=== PATIENT | female | born 1940 | race Caucasian/White ===

== ENCOUNTER 2018-08-03 06:39 | Day surgery (SDC) | payer BC, MEDICARE ==
[2018-08-03] MEDS ORDERED: Propofol 200 MG/20 ML SDV ONE (07:18)
[2018-08-03] MEDS ORDERED: Midazolam 1 MG/ML 2 ML SDV ONE (07:18)
[2018-08-03] MEDS ORDERED: fentaNYL 100 MCG/2 ML SDV ONE (07:18)
[2018-08-03] MEDS ORDERED: Sodium Chloride 0.9% 1,000 ML IV SCH (07:45)
--- NOTE | 2018-08-03 13:24 | OR ---
DATE OF PROCEDURE: 08/03/2018 SURGEON: Ellis Montero MD PROCEDURE: EGD. FINDINGS: 1. Mild inflammation at the GE junction. 2. Gastric polyp. COMPLICATION: None. SOLE SPLITTER: None. PATHOLOGY: 1. GE junction biopsies x6. 2. Gastric polyp biopsy. RISKS: Risks, benefits, alternatives, and limitations including, but not limited to infection, bleeding, and perforation were explained to the patient, who wished to proceed. PROCEDURE IN DETAIL: The patient was placed in left lateral decubitus position. The EGD scope was introduced and advanced atraumatically to the second part of the duodenum. No evidence of duodenitis or ulceration. Within the stomach itself, the patient had several small gastric polyps and one of these biopsied for sampling purposes. On retroflexion, no significant hiatal hernia. The GE junction did show some mild inflammation with a single tongue, concern for Olsen's esophagus. This was biopsied, and the other three quadrants were also biopsied using cold biopsy forceps. The air was removed from the stomach. The esophagus was inspected without abnormality. The patient tolerated the procedure well. Ellis Montero MD /[id number]
== END 2018-08-03 10:05 | disposition home or self-care (01) ==
LOC: JP.SDS 06:39
PROVIDERS: ATTEND Surgery
DX: K21.0 Gastro-esophageal reflux disease with esophagitis (principal); K31.7 Polyp of stomach and duodenum; K22.70 Barrett's esophagus without dysplasia; Z88.0 Allergy status to penicillin
CPT/HCPCS: 43239; J2250; J2704; J3010; J7030

== ENCOUNTER 2019-10-09 10:11 | Emergency (ER) | payer MEDICARE ==
--- NOTE | 2019-10-09 10:29 | EDM.PDOC ---
ED HPI GENERAL MEDICAL PROBLEM - General Chief Complaint: Neuro Symptoms/Deficits Stated Complaint: RT SIDE FACE NUMBNESS, DOUBLE VISION Time Seen by Provider: 10/09/19 10:21 Source of Information: Reports: Patient, Significant Other History Limitations: Reports: No Limitations - History of Present Illness INITIAL COMMENTS - FREE TEXT/NARRATIVE: Patient states that she awoke at 4:00 this morning with double vision. Double vision is persisted since then. She noted that she has difficulty walking because of her vision. At 8:30 she developed numbness of her right cheek and ton brannon. This has seemingly waxed and waned since 8:30 this morning. The patient had a previous episode of double vision 2 weeks ago which resulted in an MRI that did not show any abnormality. The patient also was evaluated by an napper tender who did not find any abnormality but wanted to see the patient back in follow-up. The patient has not noticed any one-sided weakness or difficulty with speech Onset: Today Onset Date: 10/09/19 Onset Time: 04:00 Duration: Hour(s): (6.5), Waxing/Waning Location: Reports: Head, Other (Eyesight) Quality: Reports: Other (Double vision and right facial numbness) Severity: Severe Improves with: Reports: None Context: Reports: Other (On awakening this morning) Associated Symptoms: Denies: Confusion, Chest Pain, Fever/Chills, Headaches, Nausea/Vomiting, Seizure, Shortness of Breath, Weakness - Related Data Allergies Allergy/AdvReac Type Severity Reaction Status Date / Time amoxicillin Allergy Hives Verified 10/20/18 11:46 Home Meds: Home Meds Aspirin [Halfprin] 81 mg PO DAILY 02/06/18 [History] Calcium Carbonate [Calcium] 500 mg PO DAILY 02/06/18 [History] Cholecalciferol (Vitamin D3) [Vitamin D3] 1,000 units PO DAILY 02/06/18 [History] Levothyroxine 75 mcg PO .EVERY OTHER DAY 02/06/18 [History] Levothyroxine [Synthroid] 50 mcg PO .EVERY OTHER DAY 02/06/18 [History] Metoprolol Succinate [Toprol XL 50mg] 50 mg PO DAILY 02/06/18 [History] Omeprazole 20 mg PO DAILY 02/06/18 [History] Oxybutynin Chloride [Ditropan Xl] 10 mg PO BID 02/06/18 [History] atorvaSTATin [Lipitor] 20 mg PO DAILY 02/06/18 [History] metroNIDAZOLE [metroNIDAZOLE 0.75% Gel] 1 applic TOP DAILY PRN 02/06/18 [History] Sulfamethoxazole/Trimethoprim [Septra DS] 1 each PO BID 5 Days #10 tab 10/09/19 [Rx] predniSONE [Prednisone] 10 mg PO BID 5 Days #10 tab.ds.pk 10/09/19 [Rx] valACYclovir HCl [Valtrex] 500 mg PO DAILY 10 Days #10 tablet 10/09/19 [Rx] Past Medical History HEENT History: Reports: None, Impaired Vision Cardiovascular History: Reports: High Cholesterol, Hypertension Gastrointestinal History: Reports: Colon Polyp, GERD Genitourinary History: Reports: Urinary Incontinence [employer] History: Reports: Dysfunctional Uterine Bleeding, Musculoskeletal History: Reports: Fracture, Other (See Below) Other Musculoskeletal History: history of polymyalgia Endocrine/Metabolic History: Reports: Hypothyroidism Oncologic (Cancer) History: Reports: Breast Dermatologic History: Reports: None - Infectious Disease History Infectious Disease History: Reports: Chicken Pox, Measles, Mumps, Shingles - Past Surgical History Head Surgeries/Procedures: Reports: None HEENT Surgical History: Reports: Cataract Surgery Cardiovascular Surgical History: Reports: None GI Surgical History: Reports: Colonoscopy, EGD Female Surgical History: Reports: D&C, Mastectomy Endocrine Surgical History: Reports: None Musculoskeletal Surgical History: Reports: Arthroscopic Knee Oncologic Surgical History: Reports: Mastectomy Dermatological Surgical History: Reports: Skin Biopsy Social & Family History - Family History Family Medical History: Noncontributory - Tobacco Use Smoking Status *Q: Never Smoker - Caffeine Use Caffeine Use: Reports: Coffee - Recreational Drug Use Recreational Drug Use: No ED ROS GENERAL - Review of Systems Review Of Systems: See Below Constitutional: Denies: Fever, Weakness HEENT: Reports: Vision Change (Double vision) Respiratory: Reports: No Symptoms Cardiovascular: Reports: No Symptoms GI/Abdominal: Reports: No Symptoms. Denies: Nausea, Vomiting Musculoskeletal: Reports: No Symptoms Skin: Reports: No Symptoms Neurological: Reports: Dizziness, Paresthesia (Right-sided face and tongue), Difficulty Walking. Denies: Seizure, Syncope, Trouble Speaking, Weakness, Change in Speech Psychiatric: Reports: Anxiety ED EXAM, NEURO - Physical Exam Exam: See Below Exam Limited By: No Limitations General Appearance: Alert, WD/WN, No Apparent Distress, Obese Ears: Normal External Exam Nose: Normal Inspection Throat/Mouth: Normal Inspection Head Exam: Atraumatic, Normocephalic Neck: Normal Inspection, Full Range of Motion Respiratory/Chest: No Respiratory Distress, Lungs Clear Cardiovascular: Normal Peripheral Pulses, Regular Rate, Rhythm GI/Abdominal: Soft, Non-Tender, No Mass Neurological: Alert, Normal Mood/Affect, Normal Dorsiflexion, Normal Reflexes, No Motor/Sensory Deficits, Oriented x 3, Other (No pronator drift. Is able to run her heel down her shins quite well. Facial grimace is symmetrical. School Librarian strengths are equal. Patient is able to close her eyes forcefully with equal strength. Extraocular movement testing shows nystagmus only in the right eye with beats to the right on rightward gaze) DTR: 1+: Bicep (R), Bicep (L), Tricep (R), Tricep (L), 2+: Patella (R), Patella (L) Back Exam: Normal Inspection, Full Range of Motion Extremities: Normal Inspection, Normal Range of Motion Psychiatric: Normal Affect, Normal Mood EKG INTERPRETATION EKG Date: 10/09/19 Time: 10:35 Rhythm: NSR Rate (Beats/Min): 57 QRS: LBBB ST-T: Normal Course - Vital Signs Text/Narrative:: Initial differential diagnosis: CVA, transient ischemic attack, tickborne illness. CT scan per the radiologist shows no intracranial abnormality CT scan per the radiologist shows no intracranial abnormality. At 1157 I discussed the patient with on-call neurologist at [facility], Dr. Porter. He feels that the patient's problem is most likely a peripheral nerve issue either a viral infection or possibly tickborne illness. He is recommended MR of the brain with and without contrast and if that does not show any evidence of stroke then to s tart the patient on Valtrex and prednisone. MR angiogram shows no acute intracranial abnormality. There is microvascular ischemic changes. There is no narrowing of any intracranial arteries. 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 At 1450 I called back to [facility] to discuss the patient with Dr. Porter. Last Recorded V/S: Last Vital Signs Temp 36.8 C 10/09/19 10:27 Pulse 72 10/09/19 10:27 Resp 15 10/09/19 10:27 BP 154/46 H 10/09/19 10:27 Pulse Ox 96 10/09/19 10:27 - Orders/Labs/Meds Orders: Active Orders 24 hr Category Date Time Status EKG Documentation Completion [RC] ASDIRECTED Care 10/09/19 10:20 Active [facility] Urgent Lab 10/09/19 11:01 Received LYME, TOTAL AB TEST/REFLEX Urgent Lab 10/09/19 11:01 Received EKG 12 Lead [EK] Urgent Ther 10/09/19 10:19 Ordered Labs: Laboratory Tests 10/09/19 10/09/19 10/09/19 Range/Units 10:19 10:38 10:38 WBC 5.3 (4.5-11.0) K/uL RBC 4.83 (3.30-5.50) M/uL Hgb 13.1 (12.0-15.0) g/dL Hct 41.2 (36.0-48.0) % MCV 85 (80-98) fL MCH 27 (27-31) pg MCHC 32 (32-36) % Plt Count 235 (150-400) K/uL PT (9.5-12.0) sec INR (0.80-1.20) Sodium (140-148) mmol/L Potassium (3.6-5.2) mmol/L Chloride (100-108) mmol/L Carbon Dioxide (21-32) mmol/L Anion Gap (5.0-14.0) mmol/L BUN (7-18) mg/dL Creatinine (0.6-1.0) mg/dL Est Cr Clr Drug Dosing mL/min Estimated GFR (MDRD) (>60) Glucose (74-106) mg/dL Calcium (8.5-10.1) mg/dL Total Bilirubin (0.2-1.0) mg/dL AST (15-37) U/L ALT (12-78) U/L Alkaline Phosphatase (46-116) U/L Troponin I < 0.017 (0.000-0.056) ng/mL Total Protein (6.4-8.2) g/dL Albumin (3.4-5.0) g/dL Globulin (2.3-3.5) g/dL Albumin/Globulin Ratio (1.2-2.2) TSH, Ultra Sensitive (0.358-3.740) uIU/mL Urine Color Yellow (YELLOW) Urine Appearance Slightly cloudy A (CLEAR) Urine pH 5.5 (5.0-8.0) Ur Specific Gap 1.020 (1.008-1.030) Urine Protein Negative (NEGATIVE) mg/dL Urine Glucose (UA) Negative (NEGATIVE) mg/dL Urine Ketones Negative (NEGATIVE) mg/dL Urine Occult Blood Trace-intact H (NEGATIVE) Urine Nitrite Positive H (NEGATIVE) Urine Bilirubin Negative (NEGATIVE) Urine Urobilinogen 0.2 (0.2-1.0) EU/dL Ur Leukocyte Esterase Moderate H (NEGATIVE) Urine RBC 0-5 (0-5) Urine WBC 0-5 (0-5) Ur Epithelial Cells Few Amorphous Sediment Rare Urine Bacteria Moderate Urine Mucus Not seen 10/09/19 10/09/19 10/09/19 Range/Units 10:38 10:38 11:01 WBC (4.5-11.0) K/uL RBC (3.30-5.50) M/uL Hgb (12.0-15.0) g/dL Hct (36.0-48.0) % MCV (80-98) fL MCH (27-31) pg MCHC (32-36) % Plt Count (150-400) K/uL PT 10.7 (9.5-12.0) sec INR 0.98 (0.80-1.20) Sodium 139 L (140-148) mmol/L Potassium 4.3 (3.6-5.2) mmol/L Chloride 106 (100-108) mmol/L Carbon Dioxide 26 (21-32) mmol/L Anion Gap 11.3 (5.0-14.0) mmol/L BUN 24 H (7-18) mg/dL Creatinine 1.2 H (0.6-1.0) mg/dL Est Cr Clr Drug Dosing 30.93 mL/min Estimated GFR (MDRD) 43 L (>60) Glucose 114 H (74-106) mg/dL Calcium 8.4 L (8.5-10.1) mg/dL Total Bilirubin 1.2 H (0.2-1.0) mg/dL AST 18 (15-37) U/L ALT 19 (12-78) U/L Alkaline Phosphatase 74 (46-116) U/L Troponin I (0.000-0.056) ng/mL Total Protein 6.8 (6.4-8.2) g/dL Albumin 3.7 (3.4-5.0) g/dL Globulin 3.1 (2.3-3.5) g/dL Albumin/Globulin Ratio 1.2 (1.2-2.2) TSH, Ultra Sensitive 1.931 (0.358-3.740) uIU/mL Urine Color (YELLOW) Urine Appearance (CLEAR) Urine pH (5.0-8.0) Ur Specific Gap (1.008-1.030) Urine Protein (NEGATIVE) mg/dL Urine Glucose (UA) (NEGATIVE) mg/dL Urine Ketones (NEGATIVE) mg/dL Urine Occult Blood (NEGATIVE) Urine Nitrite (NEGATIVE) Urine Bilirubin (NEGATIVE) Urine Urobilinogen (0.2-1.0) EU/dL Ur Leukocyte Esterase (NEGATIVE) Urine RBC (0-5) Urine WBC (0-5) Ur Epithelial Cells Amorphous Sediment Urine Bacteria Urine Mucus Meds: Medications Discontinued Medications Generic Name Dose Route Start Last Admin Trade Name Freq PRN Reason Stop Dose Admin Acetaminophen 1,000 mg 10/09/19 11:11 10/09/19 12:39 Tylenol Extra Strength PO 10/09/19 11:12 1,000 mg ONETIME ONE Administration Gadoteridol 15 ml 10/09/19 14:00 10/09/19 14:07 Prohance IV 15 ml .A DIRECTED LILIAN Administration Trimethoprim/Sulfamethoxazole 1 tab 10/09/19 14:42 Septra Ds PO 10/09/19 14:43 ONETIME ONE Departure - Departure Time of Disposition: 15:14 Disposition: Home, Self-Care 01 Clinical Impression: Transient ischemic attack (TIA), Aneurysm Urinary tract infection Qualifiers: Urinary tract infection type: acute cystitis Hematuria presence: without hematuria Qualified Code(s): N30.00 - Acute cystitis without hematuria - Discharge Information Prescriptions: predniSONE [Prednisone] 10 mg PO BID 5 Days #10 tab.ds.pk Sulfamethoxazole/Trimethoprim [Septra DS] 1 each PO BID 5 Days #10 tab valACYclovir HCl [Valtrex] 500 mg PO DAILY 10 Days #10 tablet Instructions: Cerebral Aneurysm, Urinary Tract Infection, Adult, [id number] Referrals: PCP,None [Primary Care Provider] - Forms: ED Department Discharge Additional Instructions: Start taking Valtrex, Septra and prednisone. There is no acute abnormality seen within your brain. There is a small aneurysm in an internal carotid artery be followed. You have been referred to the neurovascular clinic at [facility]. They should call you with an appointment. See your educational aid in the next 4-5days for followup. Tick borne illness titers are pending. Sepsis Event Note (ED) - Focused Exam Vital Signs: Vital Signs Temp Pulse Resp BP Pulse Ox 10/09/19 10:27 36.8 C 72 15 154/46 H 96 10/09/19 10:19 36.8 C 72 15 154/46 H 96 - My Orders Last 24 Hours: My Active Orders 10/09/19 10:19 EKG 12 Lead [EK] Urgent 10/09/19 10:20 EKG Documentation Completion [RC] ASDIRECTED 10/09/19 11:01 [facility] Urgent LYME, TOTAL AB TEST/REFLEX Urgent - Assessment/Plan Last 24 Hours: My Active Orders 10/09/19 10:19 EKG 12 Lead [EK] Urgent 10/09/19 10:20 EKG Documentation Completion [RC] ASDIRECTED 10/09/19 11:01 [facility]UL[facility] Urgent LYME, TOTAL AB TEST/REFLEX Urgent
[2019-10-09] MEDS ORDERED: Acetaminophen 500 MG Tab PO ONE (11:11)
--- NOTE | 2019-10-09 11:31 | CRLCT ---
INDICATION: Right facial numbness. TECHNIQUE: CT head without contrast. COMPARISON: 09/25/2019 brain MRI. FINDINGS: CSF spaces: Within normal limits for age. Brain parenchyma: The turner-white differentiation is normal. No sign of mass, hemorrhage, or midline shift. Skull base and calvarium: The visualized paranasal sinuses and mastoid air cells demonstrate no acute or significant findings. The visualized orbits are grossly unremarkable. No skull fractures. IMPRESSION: No acute intracranial abnormality. Please note that all CT scans at this facility use dose modulation, iterative reconstruction, and/or weight-based dosing when appropriate to reduce radiation dose to as low as reasonably achievable. Dictated by Chaim Lauren MD @ Oct 09 2019 11:26AM Signed by Dr. Chaim Lauren @ Oct 09 2019 11:29AM
[2019-10-09] MEDS ORDERED: Gadoteridol 279.3 MG/ML 15 ML SDV IV SCH (14:00)
[2019-10-09] MEDS ORDERED: Sulfamethoxazole/Trimethoprim 800-160 MG Tab PO ONE (14:42)
--- NOTE | 2019-10-09 14:45 | CRLMR ---
INDICATION: Facial numbness. Diplopia. Vision abnormalities. TECHNIQUE: MRI brain: Multiplanar multisequence MR imaging was acquired prior to and following intravenous contrast. MRA head: [id number] imaging was acquired. COMPARISON: CT brain 10/09/2019, MRI brain 09/25/2019. FINDINGS: MRI brain: Motion artifact degrades the sagittal T1 sequence. Prominence of the ventricles and sulci compatible with mild diffuse cerebral volume loss. No mass effect or midline shift. Stable few punctate T2 FLAIR hyperintensities in the supratentorial white matter, typical for sequelae of minimal chronic microvascular ischemic changes. No diffusion restriction is suggest acute infarction. No intracranial hemorrhage or pathologic extra-axial fluid collection. No pathologic intracranial enhancement. The major arterial flow voids of the skullbase are preserved. Thinning of the ocular lenses. The paranasal sinuses are well aerated. The mastoid air cells are clear. MRA head: The visualized internal carotid, middle cerebral, and anterior cerebral arteries are patent without hemodynamically significant narrowing. The vertebral, basilar, and posterior cerebral arteries are patent without significant narrowing. 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 IMPRESSION: 1. No acute intracranial abnormality. No significant change compared to 09/25/2019. 2. Stable minimal chronic microvascular ischemic changes. 3. No significant narrowing of the visualized intracranial arteries. 4. 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 Consultation with neurointerventional radiology at [facility] can be arranged by calling [phone]. Dictated by Bar Coburn MD @ Oct 09 2019 2:34PM Signed by Dr. Bar Coburn @ Oct 09 2019 2:43PM
--- NOTE | 2019-10-09 14:45 | CRLMR ---
INDICATION: Facial numbness. Diplopia. Vision abnormalities. TECHNIQUE: MRI brain: Multiplanar multisequence MR imaging was acquired prior to and following intravenous contrast. MRA head: [id number]-[id number] imaging was acquired. COMPARISON: CT brain 10/09/2019, MRI brain 09/25/2019. FINDINGS: MRI brain: Motion artifact degrades the sagittal T1 sequence. Prominence of the ventricles and sulci compatible with mild diffuse cerebral volume loss. No mass effect or midline shift. Stable few punctate T2 FLAIR hyperintensities in the supratentorial white matter, typical for sequelae of minimal chronic microvascular ischemic changes. No diffusion restriction is suggest acute infarction. No intracranial hemorrhage or pathologic extra-axial fluid collection. No pathologic intracranial enhancement. The major arterial flow voids of the skullbase are preserved. Thinning of the ocular lenses. The paranasal sinuses are well aerated. The mastoid air cells are clear. MRA head: The visualized internal carotid, middle cerebral, and anterior cerebral arteries are patent without hemodynamically significant narrowing. The vertebral, basilar, and posterior cerebral arteries are patent without significant narrowing. 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 IMPRESSION: 1. No acute intracranial abnormality. No significant change compared to 09/25/2019. 2. Stable minimal chronic microvascular ischemic changes. 3. No significant narrowing of the visualized intracranial arteries. 4. 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 Consultation with neurointerventional radiology at [facility] can be arranged by calling [phone]. Dictated by Bar Coburn MD @ Oct 09 2019 2:33PM Signed by Dr. Bar Coburn @ Oct 09 2019 2:44PM
[2019-10-11 11:11] LABS: LYME IGG/IGM AB <0.91 ISR (0.00-0.90)
[2019-10-14 14:08] LABS: HGE IGG TITER Negative (Neg:<1:64); HGE IGM TITER Negative (Neg:<1:20)
== END 2019-10-09 15:28 | disposition home or self-care (01) ==
LOC: JP.ED 10:11
DX: I67.1 Cerebral aneurysm, nonruptured (principal); G45.9 Transient cerebral ischemic attack, unspecified; N30.00 Acute cystitis without hematuria; I10 Essential (primary) hypertension; E78.00 Pure hypercholesterolemia, unspecified; K21.9 Gastro-esophageal reflux disease without esophagitis; E03.9 Hypothyroidism, unspecified; Z88.1 Allergy status to other antibiotic agents; Z79.82 Long term (current) use of aspirin; Z79.899 Other long term (current) drug therapy
CPT/HCPCS: 36415; 70450; 70544; 70553; 80053; 81001; 84443; 84484; 85027; 85610; 86618; 86666; 93005; 99285; A9270; A9579

== ENCOUNTER 2021-01-07 07:20 | Day surgery (SDC) | payer MEDICARE ==
[~2021-01-07 07:20] MED LIST: Propofol 200 MG/20 ML SDV ONE; fentaNYL 100 MCG/2 ML SDV ONE
[2021-01-07] MEDS ORDERED: Sodium Chloride 0.9% 1,000 ML IV SCH ×2 (07:30→08:30)
[2021-01-07 08:14] LABS: CORONAVIRUS COVID-19 NAA NEGATIVE (NEGATIVE)
--- NOTE | 2021-01-07 16:35 | PROC ---
DATE OF PROCEDURE: SURGEON: Ellis Montero MD PROCEDURE: Colonoscopy. FINDINGS: Normal colonoscopy. PREOPERATIVE DIAGNOSIS: Positive Cologuard. POSTOPERATIVE DIAGNOSIS: Positive Cologuard. RISKS: Risks, benefits, alternatives, and limitations including, but not limited to infection, bleeding, perforation, false positives and false negatives were explained to the patient, and she wished to proceed. PROCEDURE IN DETAIL: Patient was placed in left lateral decubitus position. Digital rectal exam was performed without abnormality. Scope was introduced and advanced atraumatically to the ileocecal valve. A photo was taken of the appendiceal orifice. Scope was brought back to the ascending, transverse, descending colon, and retroflexed. No old or new blood. No masses. No polyps. No abnormalities. Patient did have a few scattered diverticula. No abnormalities on retroflexion. Greater than 12 minutes was spent removing the scope. The prep was acceptable. Approximately 90% of the luminal surface could be seen. Patient tolerated the procedure well. Ellis Montero MD /[id number]
--- NOTE | 2021-01-09 08:40 | OR ---
DATE OF PROCEDURE: SURGEON: Ellis Montero MD ADDENDUM: PREOPERATIVE DIAGNOSIS: Screening colonoscopy. POSTOPERATIVE DIAGNOSIS: Screening colonoscopy. Ellis Montero MD /[id number]
== END 2021-01-07 10:40 | disposition home or self-care (01) ==
LOC: JP.SDS 07:20
PROVIDERS: ATTEND Surgery
DX: R19.5 Other fecal abnormalities (principal); I10 Essential (primary) hypertension; Z01.812 Encounter for preprocedural laboratory examination; Z20.822 Contact with and (suspected) exposure to COVID-19; Z88.1 Allergy status to other antibiotic agents
CPT/HCPCS: 0241U; 45378; J2704; J3010; J7030

== ENCOUNTER 2021-06-08 18:06 | Emergency (ER) | payer MEDICARE ==
[2021-06-08] MEDS ORDERED: Nitroglycerin 0.4 MG Tab.SL SL ONE (18:28)
[2021-06-08] MEDS ORDERED: Alum Hydrox/Mag Hydrox/Simeth 15 ML, Lidocaine 2% 15 ML PO ONE ×2 (19:55)
== END 2021-06-08 21:05 | disposition home or self-care (01) ==
LOC: JP.ED 18:06
DX: K22.4 Dyskinesia of esophagus (principal); I10 Essential (primary) hypertension; K21.9 Gastro-esophageal reflux disease without esophagitis; Z88.0 Allergy status to penicillin
CPT/HCPCS: 36415; 80048; 84484; 85027; 93005; 93010; 99283; 99285-25; A9270-GY

== ENCOUNTER 2021-06-11 06:21 | Day surgery (SDC) | payer MEDICARE ==
[2021-06-11] MEDS ORDERED: Sodium Chloride 0.9% 1,000 ML IV SCH (07:00)
[2021-06-11] MEDS ORDERED: fentaNYL 100 MCG/2 ML SDV ONE (07:14)
[2021-06-11] MEDS ORDERED: Propofol 200 MG/20 ML SDV ONE (07:14)
[2021-06-11] MEDS ORDERED: Pantoprazole 40 MG Vial IVPUSH ONE (08:14)
== END 2021-06-11 10:09 | disposition home or self-care (01) ==
LOC: JP.SDS 06:21
PROVIDERS: ATTEND Surgery
DX: K20.90 Esophagitis, unspecified without bleeding (principal); K22.89 Other specified disease of esophagus; I10 Essential (primary) hypertension; Z88.1 Allergy status to other antibiotic agents
CPT/HCPCS: 88305; C9113; J2704; J3010; J7030

== ENCOUNTER 2021-12-12 19:04 | Emergency (ER) | payer MEDICARE ==
[2021-12-12] MEDS: Aspirin 81 MG Tab.EC PO ONE ×2 (19:28→20:09)
[2021-12-12 19:30] LABS: ESTIMATED GFR 41 mL/min (>60)
[2021-12-12] MEDS ORDERED: Aspirin 81 MG Tab.Chew ONE (19:35)
[2021-12-12] MEDS: Nitroglycerin 0.4 MG Tab.SL SL PRN ×2 (19:35→21:30)
[2021-12-12] MEDS ORDERED: Sodium Chloride 0.9% 1,000 ML IV SCH (19:45)
[2021-12-12] MEDS ORDERED: Aspirin 81 MG Tab.Chew PO ONE (19:57)
[2021-12-12] MEDS ORDERED: Sodium Chloride 0.9% 100 ML IV ONE (19:57)
[2021-12-12] MEDS ORDERED: Iopamidol 755 Mg/ML 100 ML Bottle IV ONE (19:57)
[2021-12-12] MEDS ORDERED: Morphine 2 MG/ML SYRINGE IVPUSH ONE (20:00)
[2021-12-12] MEDS ORDERED: Alum Hydrox/Mag Hydrox/Simeth 15 ML, Lidocaine 2% 15 ML PO ONE ×2 (21:10)
[2021-12-12] MEDS ORDERED: Famotidine 20 MG Tab PO ONE (21:10)
[2021-12-12] MEDS ORDERED: HYDROmorphone 1 MG/ML Syringe IVPUSH ONE (21:40)
[2021-12-12] MEDS ORDERED: Heparin Sodium 5,000 Units/ML Vial IVPUSH ONE (22:29)
[2021-12-12] MEDS ORDERED: Nitroglycerin/D5W 25 MG/250 ML BOTTLE IV SCH (22:30)
== END 2021-12-12 23:16 ==
LOC: JP.ED 19:04
DX: I71.9 Aortic aneurysm of unspecified site, without rupture (principal); R79.89 Other specified abnormal findings of blood chemistry; E78.00 Pure hypercholesterolemia, unspecified; I10 Essential (primary) hypertension; Z88.0 Allergy status to penicillin; Z79.899 Other long term (current) drug therapy
CPT/HCPCS: 36415; 71275; 80053; 81001; 84484; 85025; 96361; 96365; 96375; 99285; A9270; J1644; J2270; J3490; J7030; Q9967

== ENCOUNTER 2022-06-07 04:22 | Emergency (ER) | payer MEDICARE ==
[2022-06-07] MEDS ORDERED: Nitroglycerin 0.4 MG Tab.SL SL ONE (04:53)
[2022-06-07] MEDS ORDERED: Labetalol 20 MG/4 ML Syringe IVPUSH ONE ×2 (04:54→05:50)
[2022-06-07] MEDS ORDERED: fentaNYL 50 MCG/ML SDV IVPUSH ONE (04:54)
[2022-06-07] MEDS ORDERED: Labetalol 20 MG/4 ML Syringe ONE (04:57)
[2022-06-07] MEDS ORDERED: Nitroglycerin 0.4 MG Tab.SL ONE (04:57)
[2022-06-07] MEDS ORDERED: fentaNYL 50 MCG/ML SDV ONE (04:57)
[2022-06-07 05:12] LABS: ESTIMATED GFR 34 mL/min (>60); TROPONIN I HIGH SENSITIVITY 53.3 pg/mL (<=60.3)
[2022-06-07] MEDS ORDERED: Iopamidol 755 Mg/ML 100 ML Bottle IV STA (05:12)
[2022-06-07] MEDS ORDERED: Sodium Chloride 0.9% 100 ML IV SCH (05:15)
[2022-06-07] MEDS ORDERED: fentaNYL 100 MCG/2 ML SDV IVPUSH ONE (06:01)
[2022-06-07] MEDS ORDERED: Alum Hydrox/Mag Hydrox/Simeth 15 ML, Lidocaine 2% 15 ML PO ONE ×2 (07:05)
[2022-06-07] MEDS ORDERED: Aspirin 81 MG Tab.Chew PO ONE (07:54)
[2022-06-07] MEDS ORDERED: Heparin Sodium 5,000 Units/ML Vial IVPUSH ONE (07:54)
[2022-06-07] MEDS ORDERED: Heparin Sodium/D5W 25,000 UNITS/500 ML BAG IV SCH (08:00)
[2022-06-07] MEDS: Nitroglycerin 0.4 MG Tab.SL SL PRN ×2 (08:03→08:16)
[2022-06-07] MEDS ORDERED: Nitroglycerin/D5W 25 MG/250 ML BOTTLE IV SCH (08:30)
== END 2022-06-07 09:06 ==
LOC: JP.ED 04:22
DX: I21.4 Non-ST elevation (NSTEMI) myocardial infarction (principal); I71.21 Aneurysm of the ascending aorta, without rupture; E78.00 Pure hypercholesterolemia, unspecified; I10 Essential (primary) hypertension; E03.9 Hypothyroidism, unspecified; Z88.0 Allergy status to penicillin; Z79.899 Other long term (current) drug therapy; Z20.822 Contact with and (suspected) exposure to COVID-19
CPT/HCPCS: 36415; 71045; 71275; 80053; 84484; 85025; 85379; 85730; 93005; 96361; 96374; 96375; 96376; 99285; A9270; J1644; J3010; J3490; Q9967; U0002

== ENCOUNTER 2024-02-05 20:07 | Emergency (ER) | payer MEDICARE ==
[2024-02-05 21:32] LABS: BASOPHILS ABSOLUTE AUTO 0.02 K/uL (0.00-0.10); BASOPHILS PERCENT AUTO 0.4 % (0.1-1.3); EOSINOPHILS ABSOLUTE AUTO 0.05 K/uL (0.00-0.40); HEMATOCRIT 32.4 % (34.3-46.0); HEMOGLOBIN 10.9 g/dL (11.2-15.5); IMMATURE GRAN ABSOLUTE AUTO 0.02 K/uL (0.00-0.23); IMMATURE GRAN PERCENT AUTO 0.4 % (0.0-0.7); LYMPHOCYTES ABSOLUTE AUTO 0.95 K/uL (0.8-3.3); LYMPHOCYTES PERCENT AUTO 18.3 % (11.4-47.7); MEAN CORPUSCULAR HEMOGLOBIN 29.1 pg (31.6-35.5); MEAN CORPUSCULAR HGB CONC 33.6 g/dL (31.6-35.5); MEAN CORPUSCULAR VOLUME 86.6 fL (81.4-99.0); MONOCYTES PERCENT AUTO 11.6 % (3.3-12.6); NEUTROPHILS ABSOLUTE AUTO 3.55 K/uL (1.0-7.6); NEUTROPHILS PERCENT AUTO 68.3 % (40.0-78.1); PLATELET COUNT,PLT 232 K/uL (130-375); RED BLOOD CELL COUNT 3.74 M/uL (3.77-5.24); WHITE BLOOD CELL COUNT,WBC 5.2 K/uL (3.2-11.0)
[2024-02-05 21:47] LABS: CALCIUM 8.4 mg/dL (8.5-10.1); CREATININE 1.8 mg/dL (0.6-1.0); EST CRCL DRUG DOSING (CG) 20.09 mL/min; POTASSIUM,K 3.7 mmol/L (3.6-5.2)
[2024-02-05 21:48] LABS: ANION GAP 9.7 mmol/L (5.0-14.0)
[2024-02-05 22:25] LABS: APPEARANCE,URINE CLEAR (CLEAR); BILIRUBIN,URINE NEGATIVE (NEGATIVE); COLOR,URINE YELLOW (YELLOW); GLUCOSE,URINE NEGATIVE (NEGATIVE); KETONES,URINE NEGATIVE (NEGATIVE); LEUKOCYTE ESTERASE,URINE NEGATIVE (NEGATIVE); NITRITE,URINE NEGATIVE (NEGATIVE); OCCULT BLOOD,URINE NEGATIVE (NEGATIVE); PROTEIN,URINE NEGATIVE (NEGATIVE); UROBILINOGEN,URINE 0.2 EU/dL (0.2-1.0)
[2024-02-05 22:30] LABS: AMORPHOUS SEDIMENT,URINE NOT SEEN; BACTERIA,URINE FEW; EPITHELIAL CELLS,URINE FEW; MUCUS,URINE NOT SEEN; RBC,URINE 0-5 (0-5); WBC,URINE 0-5 (0-5)
[2024-02-05] MEDS: Acetaminophen 500 MG Tab PO ONE (22:47)
[2024-02-05] MEDS: Aspirin 81 MG Tab.Chew PO ONE (22:47)
== END 2024-02-05 22:57 | disposition home or self-care (01) ==
LOC: JP.ED 20:07
DX: R41.0 Disorientation, unspecified (principal); I10 Essential (primary) hypertension; E78.00 Pure hypercholesterolemia, unspecified; K21.9 Gastro-esophageal reflux disease without esophagitis; E03.9 Hypothyroidism, unspecified; Z79.899 Other long term (current) drug therapy; Z79.82 Long term (current) use of aspirin; Z86.73 Personal history of transient ischemic attack (TIA), and cerebral infarction without residual deficits; Z88.0 Allergy status to penicillin
CPT/HCPCS: 36415; 70450; 80048; 81001; 85025; 99284; 99285; A9270

== ENCOUNTER 2024-02-06 15:36 | Emergency (ER) | payer MEDICARE | END 2024-02-06 17:35 | disposition home or self-care (01) | LOC: JP.ED 15:36 | DX: I63.9 Cerebral infarction, unspecified (principal); I10 Essential (primary) hypertension; E78.00 Pure hypercholesterolemia, unspecified; K21.9 Gastro-esophageal reflux disease without esophagitis; E03.9 Hypothyroidism, unspecified; Z86.73 Personal history of transient ischemic attack (TIA), and cerebral infarction without residual deficits; Z88.0 Allergy status to penicillin; Z79.890 Hormone replacement therapy; Z79.82 Long term (current) use of aspirin; Z79.899 Other long term (current) drug therapy | CPT/HCPCS: 99284 ==